=== PATIENT | female | born 1975 | race Asian ===

== ENCOUNTER 2023-01-11 10:54 | Outpatient (REF) | payer OTHER, SELFPAY ==
[2023-01-11 11:51] LABS: Barbiturate Screen Urine Negative (Negative); Benzodiazepines Screen Urine Negative (Negative); Cannabinoid Screen Urine Negative (Negative); Cocaine Screen Urine Negative (Negative); Methadone Screen Urine Negative (Negative); Methamphetamines Screen Urine Negative (Negative); Opiate Screen Urine Negative (Negative); Oxycodone Screen Urine Negative (Negative); Phencyclidine Screen Urine Negative (Negative); Tricyclic Antidepressant Urine Negative (Negative)
[2023-01-11 12:05] LABS: Amphetamine Screen Urine POSITIVE (Negative)
== END 2023-01-11 10:55 | disposition home or self-care (01) ==
LOC: NPINS 10:54
PROVIDERS: PCP Nurse Practitioner
DX: F90.0 Attention-deficit hyperactivity disorder, predominantly inattentive type (principal)
CPT/HCPCS: 80306